=== PATIENT | male | born 1945 | race Caucasian/White ===

== ENCOUNTER → 2021-06-09 | Outpatient (CLI) | payer MEDICARE ==
[~2021-06-09] MED LIST: CLARITIN10 MG PO; CRESTOR10 MG PO; FLOMAX0.4 MG PO; NORCO 5-325 TA1 EACH PO; PROSCAR5 MG PO; PROTONIX40 MG PO
== END ==
LOC: KOH-I 14:00
DX: N40.0 Benign prostatic hyperplasia without lower urinary tract symptoms (principal); N20.9 Urinary calculus, unspecified
CPT/HCPCS: 74176